=== PATIENT | female | born 1980 | race American Indian/Alaskan Native ===

== ENCOUNTER 2017-05-07 00:13 | Emergency (ER) | payer MEDICAID ==
[2017-05-07 00:13] VITALS: BMI 36.1
[2017-05-07 00:29] VITALS: BP 118/83; PULSE 73; RESP 16; TEMP 97.8; O2SAT 98
--- NOTE | 2017-05-07 00:53 | C.PDOC ---
History Of Present Illness A 36 y/o female c/o nasal discharge with greenish color, and sore throat for 3 days. Pt denies fever, chills, ear pain, nausea, vomiting, or any other complaints. Time Seen by Provider: 05/07/17 00:40 Chief Complaint (Nursing): ENT Problem History Per: Patient History/Exam Limitations: None Onset/Duration Of Symptoms: Days Current Symptoms Are (Timing): Still Present Severity: Mild Past Medical History Reviewed: Historical Data, Nursing Documentation, Vital Signs Vital Signs: Last Vital Signs Temp 97.8 F 05/07/17 00:22 Pulse 73 05/07/17 00:22 Resp 16 05/07/17 00:22 BP 118/83 05/07/17 00:22 Pulse Ox 98 05/07/17 02:42 - Medical History PMH: Asthma, Gastritis, Gall Bladder Disease Surgical History: Cholecystectomy (2002) - [facility] Procedures ARTIF RUPT MEMBRANES NEC (12/11/98) D & C NEC (04/29/15) EPISIOTOMY (12/11/98) INCIS VULVA/PERINEUM NEC (03/14/01) LAPAROSCOPIC CHOLECYSTECTOMY (08/27/03) MANUAL ASSIST DELIV NEC (10/21/00) Family History: States: Unknown Family Hx - Social History Hx Tobacco Use: No Hx Alcohol Use: No Hx Substance Use: No - Immunization History Hx Tetanus Toxoid Vaccination: No Hx Influenza Vaccination: No Hx Pneumococcal Vaccination: No Review Of Systems Constitutional: Negative for: Fever, Chills ENT: Positive for: Nose Discharge (Greenish discharge), Throat Pain. Negative for: Ear Pain Gastrointestinal: Negative for: Nausea, Vomiting Physical Exam - Physical Exam Appears: Non-toxic, No Acute Distress Skin: Warm, Dry Head: Atraumatic, Normacephalic Eye(s): bilateral: Normal Inspection, PERRL, EOMI Ear(s): Bilateral: Normal Nose: Discharge (Thick yellowish discharge ), Tenderness (frontal sinuses), Other (Enlarged nasal turbinates) Oral Mucosa: Moist Throat: Erythema, No Exudate Neck: Normal, Supple Chest: Symmetrical Cardiovascular: Rhythm Regular, No Murmur Respiratory: Normal Breath Sounds, No Rhonchi, No Wheezing Neurological/Psych: Oriented x3, Normal Speech ED Course And Treatment O2 Sat by Pulse Oximetry: 98 (RA) Pulse Ox Interpretation: Normal Progress Note: Patient is in no acute distress. Patient was instructed to follow up with physician/clinic in 1-2 days for further evaluation. Disposition Counseled Patient/Family Regarding: Diagnosis, Need For Followup, Rx Given - Disposition Referrals: Angelina Valdes MD [Medical Doctor] - Disposition: HOME/ ROUTINE Disposition Time: 00:51 Condition: STABLE Additional Instructions: Please follow up with PMD Take meds as directed Return to ER if worse Prescriptions: Azithromycin [Zithromax] 250 mg PO DAILY #6 tab Cetirizine HCl [Zyrtec] 10 mg PO DAILY #20 capsule Mometasone Furoate [Nasonex] 2 spray NS DAILY #1 bottle Instructions: Pharyngitis (ED), Sinusitis (ED) - Clinical Impression Clinical Impression: Sinusitis, Pharyngitis - Scribe Statement The provider has reviewed the documentation as recorded by the Jasonibemilie lowe All medical record entries made by the Jasonibemilie were at my direction and personally dictated by me. I have reviewed the chart and agree that the record accurately reflects my personal performance of the history, physical exam, medical decision making, and the department course for this patient. I have also personally directed, reviewed, and agree with the discharge instructions and disposition.
== END 2017-05-07 01:10 | disposition home or self-care (01) ==
LOC: C.ER 00:13
DX: J32.9 Chronic sinusitis, unspecified (principal); J02.9 Acute pharyngitis, unspecified

== ENCOUNTER 2017-05-20 08:33 | Emergency (ER) | payer MEDICAID ==
[2017-05-20 08:33] VITALS: BMI 36.1
[2017-05-20 09:24] VITALS: BP 126/81; PULSE 81; RESP 20; TEMP 97.8; O2SAT 95
[2017-05-20 09:35] LABS: RBC URINE 88 /hpf (0-3); URINE BACTERIA MOD (<OCC); URINE BILIRUBIN NEGATIVE (NEGATIVE); URINE BLOOD 2+ (NEGATIVE); URINE COLOR Yellow (YELLOW); URINE GLUCOSE (UA) NORMAL (Normal); URINE KETONE TRACE mg/dL (NEGATIVE); URINE LEUKOCYTE ESTERASE 2+ Leu/uL (Negative); URINE PROTEIN 1+ mg/dL (NEGATIVE); WBC URINE 73 /hpf (0-5)
--- NOTE | 2017-05-20 10:23 | C.PDOC ---
History Of Present Illness 36 year old female presents to the ER with a complaint of suprapubic pressure and dysuria since yesterday. Patient believe she has a UTI; she reports she has had UTIs in the past and the symptoms feel similar. Patient denies vaginal discharge/bleeding, abdominal pain, nausea or vomiting. Time Seen by Provider: 05/20/17 08:36 Chief Complaint (Nursing): Female Genitourinary History Per: Patient History/Exam Limitations: no limitations Onset/Duration Of Symptoms: Days (Since yesterday) Current Symptoms Are (Timing): Still Present Location Of Pain/Discomfort: Suprapubic Radiation Of Pain To:: None Quality Of Discomfort: Pressure Associated Symptoms: Urinary Symptoms (Dysuria). denies: Nausea, Vomiting, Other (Abdominal pain, Vaginal discharge) Exacerbating Factors: None Alleviating Factors: None Recent travel outside of the [place]: No Abnormal Vaginal Bleeding: No Past Medical History Reviewed: Historical Data, Nursing Documentation, Vital Signs Vital Signs: Last Vital Signs Temp 97.8 F 05/20/17 08:41 Pulse 81 05/20/17 08:41 Resp 20 05/20/17 08:41 BP 126/81 05/20/17 08:41 Pulse Ox 95 05/20/17 10:31 - Medical History PMH: Asthma, Gastritis, Gall Bladder Disease Surgical History: Cholecystectomy (2002) - [facility] Procedures ARTIF RUPT MEMBRANES NEC (12/11/98) D & C NEC (04/29/15) EPISIOTOMY (12/11/98) INCIS VULVA/PERINEUM NEC (03/14/01) LAPAROSCOPIC CHOLECYSTECTOMY (08/27/03) MANUAL ASSIST DELIV NEC (10/21/00) Family History: States: No Known Family Hx - Social History Hx Tobacco Use: No Hx Alcohol Use: No Hx Substance Use: No - Immunization History Hx Tetanus Toxoid Vaccination: No Hx Influenza Vaccination: No Hx Pneumococcal Vaccination: No Review Of Systems Except As Marked, All Systems Reviewed And Found Negative. Constitutional: Negative for: Fever, Chills Respiratory: Negative for: Cough, Shortness of Breath Gastrointestinal: Positive for: Other (Suprapubic Pressure). Negative for: Nausea, Vomiting, Abdominal Pain, Diarrhea Genitourinary: Positive for: Dysuria. Negative for: Hematuria, Vaginal Discharge, Vaginal Bleeding Physical Exam - Physical Exam Appears: Well, Non-toxic, No Acute Distress Skin: Normal Color, Warm, Dry Oral Mucosa: Moist Cardiovascular: Rhythm Regular Respiratory: Normal Breath Sounds, No Rales, No Rhonchi, No Wheezing Gastrointestinal/Abdominal: Bowel Sounds, Soft, Tenderness (Mild TTP at suprapubic area), No Guarding, No Rebound Back: No CVA Tenderness Neurological/Psych: Oriented x3 ED Course And Treatment - Laboratory Results Urine POC: Negative O2 Sat by Pulse Oximetry: 95 (Room air) Pulse Ox Interpretation: Normal Progress Note: UA and Upreg ordered and reviewed - confirms UTI. Patient given PO Ciprofloxacin and pyridium in ED, as well as Rxs for same. Patient instructed to follow up with PMD/clinic in 1-2 days, and she understands she should return to ED if symptoms worsen. Reevaluation Time: 10:00 Reassessment Condition: Improved Disposition - Disposition Referrals: [facility] [Outside] Disposition: HOME/ ROUTINE Disposition Time: 10:00 Condition: STABLE Additional Instructions: FOLLOW UP WITH YOUR DOCTOR/CLINIC IN 1-2 DAYS USE MEDICATION DIRECTED DRINK PLENTY OF FLUIDS RETURN TO ER IF SYMPTOMS WORSEN Prescriptions: Ciprofloxacin [Cipro] 1 tab PO BID #14 tab Phenazopyridine [Pyridium] 100 mg PO TID #9 tab Instructions: Urinary Tract Infection in Women (ED) Print Language: KOREAN - Clinical Impression Clinical Impression: UTI (urinary tract infection) - Scribe Statement The provider has reviewed the documentation as recorded by the Scribe Tien Wiggins All medical record entries made by the Scribe were at my direction and personally dictated by me. I have reviewed the chart and agree that the record accurately reflects my personal performance of the history, physical exam, medical decision making, and the department course for this patient. I have also personally directed, reviewed, and agree with the discharge instructions and disposition.
== END 2017-05-20 10:07 | disposition home or self-care (01) ==
LOC: C.ER 08:33
DX: N39.0 Urinary tract infection, site not specified (principal); B96.1 Klebsiella pneumoniae [K. pneumoniae] as the cause of diseases classified elsewhere

== ENCOUNTER 2017-09-21 11:14 | Emergency (ER) | payer MEDICAID ==
[2017-09-21 11:15] VITALS: BMI 36.1
[2017-09-21 11:24] VITALS: BP 149/82; PULSE 86; RESP 18; TEMP 97.5; O2SAT 100
--- NOTE | 2017-09-21 11:48 | C.PDOC ---
History Of Present Illness Patient presents to ED c/o initially itching and now painful rash on B/L innner thighs. She states she has had the rash for "a long time" (several weeks). She thinks the area became irritated from her thighs/pants rubbing together. She then applied eczema cream to area, and now it is painful. She also has some vaginal itching, but denies vaginal discharge/bleeding, pelvic pain, dysuria/hematuria. Time Seen by Provider: 09/21/17 11:41 Chief Complaint (Nursing): Female Genitourinary History Per: Patient History/Exam Limitations: no limitations Onset/Duration Of Symptoms: Persistent Current Symptoms Are (Timing): Still Present Quality Of Symptoms: Painful, Itching Severity: Moderate Past Medical History Reviewed: Historical Data, Nursing Documentation, Vital Signs Vital Signs: Last Vital Signs Temp 97.5 F L 09/21/17 11:21 Pulse 86 09/21/17 11:21 Resp 18 09/21/17 11:21 BP 149/82 09/21/17 11:21 Pulse Ox 100 09/21/17 11:21 - Medical History PMH: Asthma, Gastritis, Gall Bladder Disease Surgical History: Cholecystectomy (2002) - [facility] Procedures ARTIF RUPT MEMBRANES NEC (12/11/98) D & C NEC (04/29/15) EPISIOTOMY (12/11/98) INCIS VULVA/PERINEUM NEC (03/14/01) LAPAROSCOPIC CHOLECYSTECTOMY (08/27/03) MANUAL ASSIST DELIV NEC (10/21/00) Family History: States: No Known Family Hx - Social History Hx Tobacco Use: No Hx Alcohol Use: No Hx Substance Use: No - Immunization History Hx Tetanus Toxoid Vaccination: No Hx Influenza Vaccination: No Hx Pneumococcal Vaccination: No Review Of Systems Except As Marked, All Systems Reviewed And Found Negative. Constitutional: Negative for: Fever, Chills Cardiovascular: Negative for: Chest Pain Respiratory: Negative for: Shortness of Breath Gastrointestinal: Negative for: Nausea, Vomiting, Abdominal Pain Genitourinary: Negative for: Dysuria, Hematuria, Vaginal Discharge, Vaginal Bleeding Skin: Positive for: Rash (B/L inner thighs) Physical Exam - Physical Exam Appears: Well, Non-toxic, No Acute Distress Skin: Other (B/L innher thighs/inguinal area with raised red rash, dry and fungal appearing, nonvesicular) Oral Mucosa: Moist Cardiovascular: Rhythm Regular Respiratory: Normal Breath Sounds, No Rales, No Rhonchi, No Wheezing Gastrointestinal/Abdominal: Normal Exam, Bowel Sounds, Soft, No Tenderness Pelvic: Normal External Exam (no vesicular lesions, no discharge) Neurological/Psych: Oriented x3 ED Course And Treatment O2 Sat by Pulse Oximetry: 100 (RA) Pulse Ox Interpretation: Normal Progress Note: Rxs given to patient for internal and external clotrimazole. She was instructed to keep area clean and dry, and to follow up with PMD/clinic in 1-2 days. She understands she should return to ED if symptoms worsen. Disposition Counseled Patient/Family Regarding: Diagnosis, Need For Followup, Rx Given - Disposition Referrals: Angelina Valdes MD [Medical Doctor] - Disposition: HOME/ ROUTINE Disposition Time: 11:55 Condition: STABLE Additional Instructions: FOLLOW UP WITH YOUR DOCTOR IN 1-2 DAYS USE MEDICATIONS DIRECTED KEEP AREA CLEAN AND DRY POSSIBLE RETURN TO ER IF SYMPTOMS WORSEN Prescriptions: Clotrimazole 1% Cream [Lotrimin 1%] 30 gm EXT BID #1 tube Clotrimazole 1% Vaginal [Lotrimin 1% Vaginal] 1 applic VG HS #3 tube Instructions: Jaime Itch (ED) Print Language: CYMRAES - POA Present On Arrival: None - Clinical Impression Clinical Impression: Tinea cruris
== END 2017-09-21 11:57 | disposition home or self-care (01) ==
LOC: C.ER 11:14
DX: B35.6 Tinea cruris (principal)

== ENCOUNTER 2019-03-19 19:02 | Emergency (ER) | payer MEDICAID, OTHER ==
[2019-03-19 19:03] VITALS: BMI 36.1
[2019-03-19] MEDS ORDERED: Sodium Chloride 0.9% 1,000 ML IV ONE ×2 (19:47)
--- NOTE | 2019-03-19 19:49 | C.PDOC ---
History Of Present Illness 38 year old female presents to the ED complaining of abdominal pain that started this morning after eating breakfast. She describes it as burning sensation. Denies any radiation. Reports she has been vomiting since this morning. Asso ciated symptoms include slight diarrhea and nausea. Denies any fever, chills, chest pain, back pain, or urinary symptoms. Chief Complaint (Nursing): Abdominal Pain History Per: Patient History/Exam Limitations: no limitations Onset/Duration Of Symptoms: Hrs Current Symptoms Are (Timing): Still Present Context: Food Location Of Pain/Discomfort: Epigastric Radiation Of Pain To:: None Quality Of Discomfort: Burning Associated Symptoms: Nausea, Vomiting, Diarrhea. denies: Fever, Chills, Back Pain, Chest Pain, Urinary Symptoms Past Medical History Reviewed: Historical Data, Nursing Documentation, Vital Signs Vital Signs: Last Vital Signs Temp 99.1 F 03/19/19 19:25 Pulse 103 H 03/19/19 19:25 Resp 20 03/19/19 19:25 BP 124/86 03/19/19 19:25 Pulse Ox 94 L 03/19/19 19:25 - Medical History PMH: Asthma, Gastritis, Gall Bladder Disease Surgical History: Cholecystectomy (2002) - [facility] Procedures ARTIF RUPT MEMBRANES NEC (12/11/98) D & C NEC (04/29/15) EPISIOTOMY (12/11/98) INCIS VULVA/PERINEUM NEC (03/14/01) LAPAROSCOPIC CHOLECYSTECTOMY (08/27/03) MANUAL ASSIST DELIV NEC (10/21/00) Family History: States: No Known Family Hx - Social History Hx Tobacco Use: No Hx Alcohol Use: No Hx Substance Use: No - Immunization History Hx Tetanus Toxoid Vaccination: No Hx Influenza Vaccination: No Hx Pneumococcal Vaccination: No Review Of Systems Except As Marked, All Systems Reviewed And Found Negative. Constitutional: Negative for: Fever, Chills Cardiovascular: Negative for: Chest Pain Respiratory: Negative for: Shortness of Breath Gastrointestinal: Positive for: Nausea, Vomiting, Abdominal Pain, Diarrhea Genitourinary: Negative for: Dysuria, Hematuria Musculoskeletal: Negative for: Back Pain Neurological: Negative for: Headache Physical Exam - Physical Exam Appears: Non-toxic, No Acute Distress Skin: Warm, Dry, No Rash Head: Normacephalic Eye(s): bilateral: Normal Inspection Nose: Normal Oral Mucosa: Moist Neck: Supple Chest: Symmetrical Cardiovascular: Rhythm Regular Respiratory: Normal Breath Sounds, No Rales, No Rhonchi, No Wheezing Gastrointestinal/Abdominal: Soft, Tenderness (epigastric ), No Distention, No Guarding, No Rebound Neurological/Psych: Oriented x3, Normal Speech Gait: Steady ED Course And Treatment - Laboratory Results Result Diagrams: 03/19/19 20:01 03/19/19 20:01 O2 Sat by Pulse Oximetry: 94 (RA) Pulse Ox Interpretation: Abnormal Medical Decision Making Medical Decision Making: Plan - CT abd/pel - Bloodwork - Zofran 4mg IVP - Protonix 40mg IVP - IV fluids - UA - HCG Urine Disposition Counseled Patient/Family Regarding: Diagnosis - Disposition Referrals: Angelina Valdes MD [Medical Doctor] - Disposition: HOME/ ROUTINE Disposition Time: 23:46 Condition: STABLE Prescriptions: Dicyclomine [Bentyl] 10 mg PO TID #14 cap Famotidine [Pepcid] 20 mg PO BID #20 tab Instructions: Acute Abdomen (Belly Pain), Inflammatory Bowel Disease (DC) Forms: [employer] (Bhutanese) - POA Present On Arrival: None - Clinical Impression Clinical Impression: Abdominal pain, Enteritis - Scribe Statement The provider has reviewed the documentation as recorded by the Scribe Moriah Taylor All medical record entries made by the Jasonibe were at my direction and personally dictated by me. I have reviewed the chart and agree that the record accurately reflects my personal performance of the history, physical exam, medical decision making, and the department course for this patient. I have also personally directed, reviewed, and agree with the discharge instructions and disposition.
[2019-03-19] MEDS ORDERED: Sodium Chloride 0.9% 1,000 ML ONE (20:04)
[2019-03-19 20:05] LABS: BASO # 0.1 K/uL (0.0-0.2); EOS # 0.2 K/uL (0.0-0.7); EOS % 2.6 % (0.0-4.0); HEMOGLOBIN 14.7 g/dL (11.0-16.0); LYMPH # 1.9 K/uL (1.0-4.3); LYMPH % 23.2 % (20.0-40.0); MEAN CORPUSCULAR HEMOGLOBIN 28.3 pg (27.0-31.0); MEAN CORPUSCULAR HGB CONC 33.9 g/dL (33.0-37.0); MEAN PLATELET VOLUME 8.9 fL (7.2-11.7); MONO # 0.4 K/uL (0.0-0.8); MONO % 5.2 % (0.0-10.0); NEUT # 5.7 K/uL (1.8-7.0); RBC 5.18 Mil/uL (3.80-5.20); RED CELL DISTRIBUTION WIDTH 13.2 % (11.5-14.5); WHITE BLOOD COUNT 8.3 K/uL (4.8-10.8)
[2019-03-19 20:06] LABS: MEAN CELL VOLUME 83.5 fL (81.0-99.0)
[2019-03-19 20:12] LABS: SQUAMOUS EPITHIAL 5 /hpf (0-5); URINE BACTERIA RARE (<OCC); URINE BILIRUBIN NEGATIVE (NEGATIVE); URINE BLOOD NEGATIVE (NEGATIVE); URINE CLARITY Hazy (Clear); URINE COLOR Yellow (YELLOW); URINE GLUCOSE (UA) NORMAL (Normal); URINE LEUKOCYTE ESTERASE NEG Leu/uL (Negative); URINE PROTEIN 2+ mg/dL (NEGATIVE)
[2019-03-19 20:18] LABS: ALB/GLOB RATIO 1.3 (1.0-2.1); ALBUMIN 4.5 g/dL (3.5-5.0); BLOOD UREA NITROGEN 15 mg/dL (7-17); CALCIUM 9.9 mg/dl (8.6-10.4); GFR NON-AFRICAN AMERICAN > 60; LIPASE 53 U/L (23-300)
[2019-03-19 20:19] LABS: HCG,QUALITATIVE URINE NEGATIVE (NEGATIVE)
[2019-03-19 20:26] LABS: ALT/SGPT 19 U/L (9-52); AST/SGOT 30 U/L (14-36)
[2019-03-19] MEDS ORDERED: Iodixanol 320 MG/ML 100 ML BOTTLE IV ONE ×2 (20:48→21:56)
[2019-03-19] MEDS: Sucralfate 1 gm/10 ml Oral Susp UD PO STA ×2 (21:56→21:59)
[2019-03-20 00:18] VITALS: BP 126/82; PULSE 96; RESP 19; TEMP 98.8; O2SAT 99
--- NOTE | 2019-03-20 08:50 | CT ---
Date of service: 03/19/2019 PROCEDURE: CT Abdomen and Pelvis with intravenous contrast HISTORY: Abdominal pain and vomiting. COMPARISON: None. TECHNIQUE: Multiple contiguous axial images were performed through the abdomen and pelvis with the use of intravenous contrast. Subsequently, sagittal and coronal reformatted images were obtained. Radiation dose: Total exam DLP = 1063.52 mGy-cm. This CT exam was performed using one or more of the following dose reduction techniques: Automated exposure control, adjustment of the mA and/or kV according to patient size, and/or use of iterative reconstruction technique. FINDINGS: LOWER THORAX: Unremarkable. LIVER: Unremarkable. No gross lesion or ductal dilatation. GALLBLADDER AND BILE DUCTS: Surgical clips at the gallbladder fossa suggestive for prior cholecystectomy. PANCREAS: Unremarkable. No gross lesion or ductal dilatation. SPLEEN: Unremarkable. ADRENALS: Unremarkable. No mass. KIDNEYS AND URETERS: Unremarkable. No hydronephrosis. No solid mass. VASCULATURE: Unremarkable. No aortic aneurysm. No aortic atherosclerotic calcification or mural plaque present. BOWEL: Few thickened and distended loops of small bowel seen within the upper abdomen which may represent an enteritis. Clinical correlation. Focal underdistention and or mild thickening of the distal ascending and transverse colon, nonspecific. APPENDIX: Unremarkable. Normal appendix. PERITONEUM: Unremarkable. No free fluid. No free air. LYMPH NODES: Few shotty para-aortic and inguinal lymph nodes. Few shotty mesenteric lymph nodes. BLADDER: Unremarkable. REPRODUCTIVE: Heterogeneous uterus and bilateral adnexa. Complex 1.5 centimeter left ovarian cyst. Calcifications within the bilateral adnexa measuring up to 7 millimeters on the right and up to 5 millimeters on the left. BONES: Degenerative changes in the spine. Sclerosis at the bilateral SI joints. OTHER FINDINGS: None. IMPRESSION: 1. Few thickened and distended loops of small bowel seen within the upper abdomen which may represent an enteritis. Clinical correlation. 2. Focal underdistention and or mild thickening of the distal ascending and transverse colon, nonspecific. Acute infectious and or inflammatory changes at this level cannot be excluded. Clinical correlation. 3. Heterogeneous uterus and bilateral adnexa with calcifications in the bilateral adnexa as described above. 1.5 centimeter complex left ovarian cyst with possible adnexal calcification. Correlation with pelvic ultrasound may be helpful if clinically indicated. Clinical correlation. A preliminary report was generated at 11:26 p.m. on 03/19/[address] Eugene Yañez from [employer]. This case was placed in the PA review folder.
== END 2019-03-20 00:19 | disposition home or self-care (01) ==
LOC: C.ER 19:02
DX: K52.9 Noninfective gastroenteritis and colitis, unspecified (principal); R10.13 Epigastric pain
CPT/HCPCS: 74177; 80053; 81001; 83690; 84703; 85025; 96361; 96372; 96374; 96375; 99285; C9113; J0500; J2405; J7030; Q9967